=== PATIENT | female | born 1955 | race Caucasian/White ===

== ENCOUNTER 2020-10-09 15:40 | Observation (INO) | payer MEDICARE ==
[2020-10-09] MEDS ORDERED: SODIUM CHLORIDE 0.9% 500 ML 500 ML IV STA (15:56)
[2020-10-09 16:27] LABS: Basophils # (A) 0.1 k/uL (0-0.2); Basophils % (A) 1 %; Eosinophils # (A) 0.3 k/uL (0-0.7); Eosinophils % (A) 4 %; HCT 36.9 % (34.0-46.0); HGB 12.3 gm/dL (11.4-16.0); Lymphocytes % (A) 21 %; MCHC 33.3 g/dL (31.0-37.0); MCV 93.2 fL (80.0-100.0); Mean Platelet Volume 7.7; Monocytes # (A) 0.4 k/uL (0-1.0); Monocytes % (A) 4 %; Neutrophils # (A) 6.7 k/uL (1.3-7.7); Neutrophils % (A) 70 %; Platelet Count 189 k/uL (150-450); RBC 3.96 m/uL (3.80-5.40); RDW 13.7 % (11.5-15.5); WBC 9.5 k/uL (3.8-10.6)
--- NOTE | 2020-10-09 16:31 | ED ---
General Adult HPI - General Chief complaint: Weakness Stated complaint: weakness, confusion Time Seen by Provider: 10/09/20 15:44 Source: patient, RN notes reviewed, old records reviewed Mode of arrival: ambulatory Limitations: no limitations - History of Present Illness Initial comments: 65-year-old female history of Parkinson's disease presenting for evaluation of increased fatigue and weakness. She states that it is taking more time to get up and about the usual. She states she's sleeping until lunchtime daily. She was started on Zoloft 1 week ago and believes this may be contributing to her symptoms. She denies fever. She denies chest pain or abdominal pain. She denies headache. She denies focal numbness or weakness. - Related Data Home Medications Medication Instructions Recorded Confirmed Aspirin EC [Ecotrin Low Dose] 81 mg PO DAILY 10/09/20 10/09/20 Calcium Carbonate [Calcium] 600 mg PO DAILY 10/09/20 10/09/20 Carbidopa-Levodopa 25-100 mg 1 tab PO TID 10/09/20 10/09/20 [Sinemet 25-100] Cholecalciferol [Vitamin D3 (25 25 mcg PO DAILY 10/09/20 10/09/20 Mcg = 1000 Iu)] Gabapentin 600 mg PO Q8H 10/09/20 10/09/20 Lisinopril-Hctz 10-12.5 mg 1 tab PO DAILY 10/09/20 10/09/20 [Zestoretic 10-12.5] Magnesium 200 mg PO DAILY 10/09/20 10/09/20 [place]-3 Fatty Acids/Fish Oil [Fish 1 cap PO DAILY 10/09/20 10/09/20 Oil 1,000 mg Softgel] Propranolol HCl [Propranolol HCl 120 mg PO DAILY 10/09/20 10/09/20 ER] Rasagiline Mesylate 1 mg PO BID 10/09/20 10/09/20 Sertraline [Zoloft] 50 mg PO DAILY 10/09/20 10/09/20 Trihexyphenidyl [Artane] 2 mg PO BID 10/09/20 10/09/20 amantadine HCL [Amantadine] 100 mg PO BID 10/09/20 10/09/20 l-Mefol/A-Cyst/Meb12/Algal Oil 1 tab PO DAILY 10/09/20 10/09/20 [Cerefolin Nac Caplet] Allergies Allergy/AdvReac Type Severity Reaction Status Date / Time No Known Allergies Allergy Verified 10/09/20 17:07 Review of Systems ROS Statement: Those systems with pertinent positive or pertinent negative responses have been documented in the HPI. ROS Other: All systems not noted in ROS Statement are negative. Past Medical History Additional Past Medical History / Comment(s): Parkinson History of Any Multi-Drug Resistant Organisms: None Reported Past Surgical History: Cholecystectomy, Hysterectomy Past Psychological History: Depression Smoking Status: Never smoker Past Alcohol Use History: None Reported Past Drug Use History: None Reported General Exam Limitations: no limitations General appearance: alert, in no apparent distress Head exam: Present: atraumatic, normocephalic Eye exam: Present: normal appearance, PERRL ENT exam: Present: mucous membranes dry Neck exam: Present: normal inspection. Absent: tenderness, meningismus Respiratory exam: Present: normal lung sounds bilaterally. Absent: respiratory distress, wheezes, rales Cardiovascular Exam: Present: regular rate, normal rhythm GI/Abdominal exam: Present: soft. Absent: distended, tenderness, guarding, rebound Extremities exam: Present: normal inspection, normal capillary refill. Absent: pedal edema Neurological exam: Present: alert, oriented X3, CN II-XII intact. Absent: motor sensory deficit Psychiatric exam: Present: normal affect, normal mood Skin exam: Present: warm, dry, intact. Absent: cyanosis, diaphoretic Course Vital Signs 10/09/20 15:46 Temperature 98.1 F Pulse Rate 62 Respiratory 18 Rate Blood Pressure 93/49 O2 Sat by Pulse 98 Oximetry EKG Findings - EKG Comments: EKG Findings:: EKG: Normal sinus rhythm, no ST segment elevation, T-wave inversion in V2 and V3 and T-wave flattening through the lateral precordial leads. Rate of 60, NE interval 174, QRS duration 96, QTC 424 Medical Decision Making - Medical Decision Making 65-year-old female history of Parkinson's presents with increased rales weakness and fatigue. She has a nonfocal neurologic exam. She does appear dehydrated. Patient has a CBC which is within normal limits, she has a CMP showing acute kidney injury with a creatinine of 2.5, Baseline is normal. She has a mild lactic acidosis of 2.4. She has a troponin elevation 0.038 with no active chest pain, EKG does show some T-wave inversion however there is no old for comparison. She will be admitted for IV hydration, serial cardiac enzymes. Case discussed with Dr. Chow who will admit. Urinalysis pending - Lab Data Result diagrams: 10/09/20 16:17 10/09/20 16:17 Lab Results 10/09/20 10/09/20 10/09/20 Range/Units 16:17 16:17 16:17 WBC 9.5 (3.8-10.6) k/uL RBC 3.96 (3.80-5.40) m/uL Hgb 12.3 (11.4-16.0) gm/dL Hct 36.9 (34.0-46.0) % MCV 93.2 (80.0-100.0) fL MCH 31.0 (25.0-35.0) pg MCHC 33.3 (31.0-37.0) g/dL RDW 13.7 (11.5-15.5) % Plt Count 189 (150-450) k/uL MPV 7.7 Neutrophils % 70 % Lymphocytes % 21 % Monocytes % 4 % Eosinophils % 4 % Basophils % 1 % Neutrophils # 6.7 (1.3-7.7) k/uL Lymphocytes # 2.0 (1.0-4.8) k/uL Monocytes # 0.4 (0-1.0) k/uL Eosinophils # 0.3 (0-0.7) k/uL Basophils # 0.1 (0-0.2) k/uL PT 10.1 (9.0-12.0) sec INR 0.9 (<1.2) APTT 21.1 L (22.0-30.0) sec Sodium 137 (137-145) mmol/L Potassium 4.5 (3.5-5.1) mmol/L Chloride 101 (98-107) mmol/L Carbon Dioxide 25 (22-30) mmol/L Anion Gap 11 mmol/L BUN 44 H (7-17) mg/dL Creatinine 2.52 H (0.52-1.04) mg/dL Est GFR (CKD-EPI)AfAm 22 (>60 ml/min/1.73 sqM) Est GFR (CKD-EPI)NonAf 19 (>60 ml/min/1.73 sqM) Glucose 113 H (74-99) mg/dL Plasma Lactic Acid Osmin (0.7-2.0) mmol/L Calcium 9.7 (8.4-10.2) mg/dL Magnesium 2.2 (1.6-2.3) mg/dL Total Bilirubin 0.6 (0.2-1.3) mg/dL AST 43 H (14-36) U/L ALT 10 (4-34) U/L Alkaline Phosphatase 84 (38-126) U/L Troponin I (0.000-0.034) ng/mL Total Protein 7.3 (6.3-8.2) g/dL Albumin 4.0 (3.5-5.0) g/dL 10/09/20 10/09/20 Range/Units 16:17 16:17 WBC (3.8-10.6) k/uL RBC (3.80-5.40) m/uL Hgb (11.4-16.0) gm/dL Hct (34.0-46.0) % MCV (80.0-100.0) fL MCH (25.0-35.0) pg MCHC (31.0-37.0) g/dL RDW (11.5-15.5) % Plt Count (150-450) k/uL MPV Neutrophils % % Lymphocytes % % Monocytes % % Eosinophils % % Basophils % % Neutrophils # (1.3-7.7) k/uL Lymphocytes # (1.0-4.8) k/uL Monocytes # (0-1.0) k/uL Eosinophils # (0-0.7) k/uL Basophils # (0-0.2) k/uL PT (9.0-12.0) sec INR (<1.2) APTT (22.0-30.0) sec Sodium (137-145) mmol/L Potassium (3.5-5.1) mmol/L Chloride (98-107) mmol/L Carbon Dioxide (22-30) mmol/L Anion Gap mmol/L BUN (7-17) mg/dL Creatinine (0.52-1.04) mg/dL Est GFR (CKD-EPI)AfAm (>60 ml/min/1.73 sqM) Est GFR (CKD-EPI)NonAf (>60 ml/min/1.73 sqM) Glucose (74-99) mg/dL Plasma Lactic Acid Osmin 2.4 H* (0.7-2.0) mmol/L Calcium (8.4-10.2) mg/dL Magnesium (1.6-2.3) mg/dL Total Bilirubin (0.2-1.3) mg/dL AST (14-36) U/L ALT (4-34) U/L Alkaline Phosphatase (38-126) U/L Troponin I 0.038 H* (0.000-0.034) ng/mL Total Protein (6.3-8.2) g/dL Albumin (3.5-5.0) g/dL Disposition Clinical Impression: Dehydration, Acute renal failure, Elevated troponin Disposition: ADMITTED IP TO THIS [facility] Condition: Stable Is patient prescribed a controlled substance at d/c from ED?: No Referrals: Pau Hanson MD [Primary Care Provider] - 1-2 days Decision to Admit Reason: Admit from EC Decision Date: 10/09/20 Decision Time: 17:35
[2020-10-09 16:37] LABS: INR 0.9 (<1.2); Prothrombin Time 10.1 sec (9.0-12.0)
[2020-10-09 16:41] LABS: Calcium 9.7 mg/dL (8.4-10.2); Magnesium 2.2 mg/dL (1.6-2.3); Potassium 4.5 mmol/L (3.5-5.1); Total Bilirubin 0.6 mg/dL (0.2-1.3); Total Protein 7.3 g/dL (6.3-8.2)
[2020-10-09 16:44] LABS: Partial Thromboplastin Time 21.1 sec (22.0-30.0)
[2020-10-09] MEDS ORDERED: SODIUM CHLORIDE 0.9% 500 ML 500 ML IV ONE (17:03)
[2020-10-09] MEDS ORDERED: ASPIRIN 325 MG TAB PO STA (17:03)
--- NOTE | 2020-10-09 17:13 | XR ---
EXAMINATION TYPE: XR chest 2V DATE OF EXAM: 10/09/2020 COMPARISON: NONE HISTORY: Weakness TECHNIQUE: 2 views FINDINGS: Heart and mediastinum are within normal limits. Lungs are clear of infiltrate. There is no pleural effusion. Bony thorax is intact. IMPRESSION: No active cardiopulmonary disease.
[2020-10-09] MEDS ORDERED: NON FORMULARY DRUG (Gabapentin [Gabapentin] 600 MG Tablet) PO SCH (17:15)
[2020-10-09] MEDS ORDERED: ACETAMINOPHEN TAB 325 MG TAB PO PRN (17:33)
[2020-10-09] MEDS ORDERED: NALOXONE 0.4 MG/ML 1 ML VIAL IV PRN (17:33)
[2020-10-09] MEDS: SODIUM CHLORIDE 0.9% 1,000 ML IV SCH (17:48)
[2020-10-09] MEDS: CARBIDOPA-LEVODOPA 25-100 MG 1 EACH TAB PO SCH (21:46)
[2020-10-09] MEDS: RASAGILINE MESYLATE PO SCH (23:01)
[2020-10-09] MEDS: GABAPENTIN 300 MG CAP PO SCH (23:47)
[2020-10-10] MEDS ORDERED: PROPRANOLOL LA 60 MG CAP.SA.24H PO SCH (09:00)
[2020-10-10] MEDS: SODIUM CHLORIDE 0.9% 1,000 ML IV SCH ×2 (09:42→17:58)
[2020-10-10] MEDS: RASAGILINE MESYLATE PO SCH ×2 (09:52→21:38)
[2020-10-10] MEDS: [UNRECOGNIZED DRUG - OTHER] PO SCH (09:52)
[2020-10-10] MEDS: TRIHEXYPHENIDYL 2 MG TAB PO SCH ×2 (10:00→18:18)
[2020-10-10] MEDS: ASPIRIN 81 MG PO SCH (10:00)
[2020-10-10] MEDS: CARBIDOPA-LEVODOPA 25-100 MG 1 EACH TAB PO SCH ×3 (10:01→21:38)
[2020-10-10] MEDS: CHOLECALCIFEROL 25 MCG (1000 IU) TABLET PO SCH (10:01)
[2020-10-10] MEDS: MAGNESIUM OXIDE 400 MG TAB PO SCH (10:01)
[2020-10-10] MEDS: GABAPENTIN 300 MG CAP PO SCH (10:01)
[2020-10-10 11:37] LABS: Appearance,Urine Cloudy (Clear); Bilirubin,Urine Negative (Negative); Blood,Urine Negative (Negative); Color,Urine Yellow; Glucose,Urine (UA) Negative (Negative); Ketones,Urine Negative (Negative); Leukocyte Esterase,Urine Moderate (Negative); Nitrite,Urine Negative (Negative); PH, Urine 5.5 (5.0-8.0); Protein,Urine Trace (Negative); RBC,Urine 2 /hpf (0-5); Specific Gravity,Urine 1.017 (1.001-1.035); Squamous Epithelial Cell,Urine 2 /hpf (0-4); Urobilinogen,Urine <2.0 mg/dL (<2.0); WBC,Urine 9 /hpf (0-5)
--- NOTE | 2020-10-10 11:39 | P.HPIM ---
History of Present Illness 65-year-old the jules avila female came in with compensative dizziness fatigue and weakness has been going on for about 34 days progressive getting worse. Patient is found to be in renal failure patient denied any poor by mouth intake denied any diarrhea. Patient denied nausea vomiting patient is also found to be hypotensive . Patient baseline creatinine was around 1.2 and went up to around 1-2.5. Patient was given a bolus of fluid subsequently admitted at 75 mL of normal saline. IV fluids will be increased 1 25 mL nephrology was consulted will obtain bladder scan, ultrasound of the kidney urinary bladder, urine random sodium urine random creatinine and urine he snuffles nephrology will be consulted. Patient doesn't have any chest pain EKG did not show any significant abnormality patient has a positive troponin which was moderately elevated secondary to renal failure. Patient was on lisinopril hydrochlorothiazide which is being held. Review of Systems REVIEW OF SYSTEMS: CONSTITUTIONAL: As mentioned in HPI HEENT: No recent visual problems or hearing problems. Denied any sore throat. CARDIOVASCULAR: No chest pain, orthopnea, PND, no palpitations, no syncope. PULMONARY: No shortness of breath, no cough, no hemoptysis. GASTROINTESTINAL: No diarrhea, no nausea, no vomiting, no abdominal pain. NEUROLOGICAL: No headaches, no weakness, no numbness. HEMATOLOGICAL: Denies any bleeding or petechiae. GENITOURINARY: Denies any burning micturition, frequency, or urgency. MUSCULOSKELETAL/RHEUMATOLOGICAL: Denies any joint pain, swelling, or any muscle pain. ENDOCRINE: Denies any polyuria or polydipsia. The rest of the 14-point review of systems is negative. Past Medical History Past Medical History: Hypertension Additional Past Medical History / Comment(s): Parkinson History of Any Multi-Drug Resistant Organisms: None Reported Past Surgical History: Cholecystectomy, Hysterectomy Past Anesthesia/Blood Transfusion Reactions: No Reported Reaction Past Psychological History: Depression Smoking Status: Never smoker Past Alcohol Use History: None Reported Past Drug Use History: None Reported Medications and Allergies Home Medications Medication Instructions Recorded Confirmed Type Aspirin EC [Ecotrin Low Dose] 81 mg PO DAILY 10/09/20 10/09/20 History Calcium Carbonate [Calcium] 600 mg PO DAILY 10/09/20 10/09/20 History Carbidopa-Levodopa 25-100 mg 1 tab PO TID 10/09/20 10/09/20 History [Sinemet 25-100] Cholecalciferol [Vitamin D3 (25 25 mcg PO DAILY 10/09/20 10/09/20 History Mcg = 1000 Iu)] Gabapentin 600 mg PO Q8H 10/09/20 10/09/20 History Lisinopril-Hctz 10-12.5 mg 1 tab PO DAILY 10/09/20 10/09/20 History [Zestoretic 10-12.5] Magnesium 200 mg PO DAILY 10/09/20 10/09/20 History [place]-3 Fatty Acids/Fish Oil [Fish 1 cap PO DAILY 10/09/20 10/09/20 History Oil 1,000 mg Softgel] Propranolol HCl [Propranolol HCl 120 mg PO DAILY 10/09/20 10/09/20 History ER] Rasagiline Mesylate 1 mg PO BID 10/09/20 10/09/20 History Sertraline [Zoloft] 50 mg PO DAILY 10/09/20 10/09/20 History Trihexyphenidyl [Artane] 2 mg PO BID 10/09/20 10/09/20 History amantadine HCL [Amantadine] 100 mg PO BID 10/09/20 10/09/20 History l-Mefol/A-Cyst/Meb12/Algal Oil 1 tab PO DAILY 10/09/20 10/09/20 History [Cerefolin Nac Caplet] Allergies Allergy/AdvReac Type Severity Reaction Status Date / Time No Known Allergies Allergy Verified 10/09/20 17:07 Physical Exam Vitals: Vital Signs Temp Pulse Pulse Resp BP BP Pulse Ox 10/10/20 03:50 97.8 F 60 19 118/58 98 10/10/20 01:26 68 17 10/09/20 23:24 97.8 F 68 17 130/72 97 10/09/20 20:36 88 18 120/73 98 10/09/20 20:00 97.8 F 62 20 111/69 97 10/09/20 17:30 62 16 106/61 98 10/09/20 17:00 58 L 16 107/71 98 10/09/20 16:30 59 L 18 99/50 98 10/09/20 15:46 98.1 F 62 18 93/49 98 Intake and Output 10/09/20 10/10/20 10/10/20 22:59 06:59 14:59 Intake Total 180 Balance 180 Intake: Oral 180 Other: Voiding Method Bedside Commode Bedside Commode Weight 119.295 kg 121.5 kg PHYSICAL EXAMINATION: GENERAL: The patient is alert and oriented x3, not in any acute distress. Obese HEENT: Pupils are round and equally reacting to light. EOMI. No scleral icterus. No conjunctival pallor. Normocephalic, atraumatic. No pharyngeal erythema. No thyromegaly. CARDIOVASCULAR: S1 and S2 present. No murmurs, rubs, or gallops. PULMONARY: Chest is clear to auscultation, no wheezing or crackles. ABDOMEN: Soft, nontender, nondistended, normoactive bowel sounds. No palpable organomegaly. MUSCULOSKELETAL: No joint swelling or deformity. EXTREMITIES: No cyanosis, clubbing, or pedal edema. NEUROLOGICAL: Gross neurological examination did not reveal any focal deficits. SKIN: No rashes. Results CBC & Chem 7: 10/09/20 16:17 10/09/20 16:17 Labs: Abnormal Lab Results - Last 24 Hours (Table) 10/09/20 10/09/20 10/09/20 Range/Units 16:17 16:17 16:17 APTT 21.1 L (22.0-30.0) sec BUN 44 H (7-17) mg/dL Creatinine 2.52 H (0.52-1.04) mg/dL Glucose 113 H (74-99) mg/dL Plasma Lactic Acid Osmin 2.4 H* (0.7-2.0) mmol/L AST 43 H (14-36) U/L Troponin I (0.000-0.034) ng/mL 10/09/20 Range/Units 16:17 APTT (22.0-30.0) sec BUN (7-17) mg/dL Creatinine (0.52-1.04) mg/dL Glucose (74-99) mg/dL Plasma Lactic Acid [place]min (0.7-2.0) mmol/L AST (14-36) U/L Troponin I 0.038 H* (0.000-0.034) ng/mL Thrombosis Risk Factor Assmnt - Choose All That Apply Each Risk Factor Represents 2 Points: Age 61-74 years Thrombosis Risk Factor Assessment Total Risk Factor Score: 2 Thrombosis Risk Factor Assessment Level: Low Risk Assessment and Plan Plan: -Acute renal failure on chronic kidney disease stage II: Probably secondary to lisinopril and had good thiazide which is held and patient IV fluids will be increased 1 25 mL per hour and further workup for etiology of renal failure as mentioned above. -Social hypertension: Patient is presently hypotensive at this time, propranolol will be held and the lisinopril hydrochlorothiazide will be held -Elevated troponin secondary to renal dysfunction. -The depression -Chronic back pain and peripheral neuropathy patient is on gabapentin which will be continued but will cut down the dose -History of Parkinson's patient is on Sinemet, amantadine and rasagline which will be continued which will be continued -Obesity -DVT prophylaxis with the heparin
[2020-10-10 11:52] LABS: Calcium 8.9 mg/dL (8.4-10.2); Potassium 4.2 mmol/L (3.5-5.1)
--- NOTE | 2020-10-10 13:06 | P.NPCON ---
History of Present Illness - Reason for Consult acute renal failure - History of Present Illness Reason for consult admission: Acute kidney injury History of present illness: Patient is a 65-year-old female seen in consultation for acute kidney injury. Patient's creatinine as of January 2019 was 1.3. On admission it was elevated at 2.5 to and is 2.08 today. Patient presented to the hospital with generalized weakness and dizziness. She denies any syncopal episodes. Her blood pressure was in the systolic 90s initially but is now better. Most recent reading was 118/58. She was on lisinopril and hydrochlorothiazide which are currently held. Oral intake is fair. No vomiting or diarrhea. She is currently receiving IV fluids with normal saline running at 1 25 mL an hour. Has been voiding. No h ematuria or dysuria. No abdominal pain. Lactic acid was high at 2.4 and improved to 1.9 but repeated a few hours after. Denies regular use of nonsteroidals. UA is quite benign. Chest x-ray negative for any acute process. Renal ultrasound is pending. Denies family history of renal disease. is present at bedside. Vital signs are stable. General: The patient appeared well nourished and normally developed. HEENT: Head exam is unremarkable. Neck is without jugular venous distension. LUNGS: Breath sounds decreased. HEART: Rate and Rhythm are regular. ABDOMEN: Soft, nontender. Obese. EXTREMITITES: No edema. Past Medical History Past Medical History: Hypertension Additional Past Medical History / Comment(s): Parkinson History of Any Multi-Drug Resistant Organisms: None Reported Past Surgical History: Cholecystectomy, Hysterectomy Past Anesthesia/Blood Transfusion Reactions: No Reported Reaction Past Psychological History: Depression Smoking Status: Never smoker Past Alcohol Use History: None Reported Past Drug Use History: None Reported Medications and Allergies Home Medications Medication Instructions Recorded Confirmed Type Aspirin EC [Ecotrin Low Dose] 81 mg PO DAILY 10/09/20 10/09/20 History Calcium Carbonate [Calcium] 600 mg PO DAILY 10/09/20 10/09/20 History Carbidopa-Levodopa 25-100 mg 1 tab PO TID 10/09/20 10/09/20 History [Sinemet 25-100] Cholecalciferol [Vitamin D3 (25 25 mcg PO DAILY 10/09/20 10/09/20 History Mcg = 1000 Iu)] Gabapentin 600 mg PO Q8H 10/09/20 10/09/20 History Lisinopril-Hctz 10-12.5 mg 1 tab PO DAILY 10/09/20 10/09/20 History [Zestoretic 10-12.5] Magnesium 200 mg PO DAILY 10/09/20 10/09/20 History [place]-3 Fatty Acids/Fish Oil [Fish 1 cap PO DAILY 10/09/20 10/09/20 History Oil 1,000 mg Softgel] Propranolol HCl [Propranolol HCl 120 mg PO DAILY 10/09/20 10/09/20 History ER] Rasagiline Mesylate 1 mg PO BID 10/09/20 10/09/20 History Sertraline [Zoloft] 50 mg PO DAILY 10/09/20 10/09/20 History Trihexyphenidyl [Artane] 2 mg PO BID 10/09/20 10/09/20 History amantadine HCL [Amantadine] 100 mg PO BID 10/09/20 10/09/20 History l-Mefol/A-Cyst/Meb12/Algal Oil 1 tab PO DAILY 10/09/20 10/09/20 History [Cerefolin Nac Caplet] Allergies Allergy/AdvReac Type Severity Reaction Status Date / Time No Known Allergies Allergy Verified 10/09/20 17:07 Physical Exam Vitals: Vital Signs Temp Pulse Pulse Resp BP BP Pulse Ox 10/10/20 03:50 97.8 F 60 19 118/58 98 10/10/20 01:26 68 17 10/09/20 23:24 97.8 F 68 17 130/72 97 10/09/20 20:36 88 18 120/73 98 10/09/20 20:00 97.8 F 62 20 111/69 97 10/09/20 17:30 62 16 106/61 98 10/09/20 17:00 58 L 16 107/71 98 10/09/20 16:30 59 L 18 99/50 98 10/09/20 15:46 98.1 F 62 18 93/49 98 Intake and Output 10/09/20 10/10/20 10/10/20 22:59 06:59 14:59 Intake Total 780 Output Total 600 Balance 180 Intake: Intake, IV Titration 600 Amount Sodium Chloride 0.9% 1, 600 000 ml @ 125 mls/hr IV . Q8H [facility] Rx#:[id number] Oral 180 Output: Urine 600 Other: Voiding Method Bedside Commode Bedside Commode Weight 119.295 kg 121.5 kg Results - Lab Results Most recent lab results Calcium 8.9 mg/dL (8.4-10.2) 10/10/20 11:26 Magnesium 2.2 mg/dL (1.6-2.3) 10/09/20 16:17 10/09/20 16:17 10/10/20 11:26 Assessment and Plan Plan: Assessment: 1. Acute kidney injury mostly prerenal secondary to hypovolemia and hypotension. Creatinine was 2.52 on admission was 2.0 today. UA is fairly benign. 2. Hypovolemia secondary to diuretics. 3. Benign hypertension. Blood pressure was in the systolic 90s on admission but is better now. 4. Pyuria. Plan: Maintain IV fluids. Continue to hold antihypertensives. Check urine culture. Follow-up renal ultrasound. Check SPEP and immunofixation. Continue to monitor renal function and urine output. Thank you for the consultation. I will continue to follow the patient with you during her hospital stay.
--- NOTE | 2020-10-10 14:00 | US ---
EXAMINATION TYPE: US kidneys/renal and bladder DATE OF EXAM: 10/10/2020 COMPARISON: NONE CLINICAL HISTORY: ARSENIO. dehydrated, morbidly obese EXAM MEASUREMENTS: Right Kidney: 10.2 x 4.0 x 4.6 cm Left Kidney: 9.8 x 3.4 x 4.9 cm Right Kidney: No hydronephrosis or masses seen Left Kidney: Limited imaging due to bowel gas and patient inability to roll more on their right side, no hydronephrosis or masses seen Bladder: wnl Bilateral Jets seen: yes IMPRESSION: 1. Normal renal ultrasound
[2020-10-10] MEDS: HEPARIN SODIUM,PORCINE 5,000 UNIT/ML 1 ML VIAL SQ SCH ×2 (16:16→23:20)
[2020-10-10] MEDS: GABAPENTIN 100 MG CAP PO SCH ×2 (16:16→23:20)
[2020-10-10 19:12] LABS: Protein, Total 6.2 g/dL (6.2-8.2)
[2020-10-10 20:40] LABS: Glucose,Whole Blood 101 mg/dL (75-99)
[2020-10-11] MEDS: SODIUM CHLORIDE 0.9% 1,000 ML IV SCH (04:10)
[2020-10-11 07:33] LABS: Calcium 8.6 mg/dL (8.4-10.2); Magnesium 1.8 mg/dL (1.6-2.3); Potassium 4.4 mmol/L (3.5-5.1)
[2020-10-11 07:59] VITALS: BP 145/82; PULSE 66; RESP 18; TEMP 97.5
[2020-10-11] MEDS: MAGNESIUM OXIDE 400 MG TAB PO SCH (08:03)
[2020-10-11] MEDS: CARBIDOPA-LEVODOPA 25-100 MG 1 EACH TAB PO SCH (08:03)
[2020-10-11] MEDS: CHOLECALCIFEROL 25 MCG (1000 IU) TABLET PO SCH (08:03)
[2020-10-11] MEDS: GABAPENTIN 100 MG CAP PO SCH (08:03)
[2020-10-11] MEDS: ASPIRIN 81 MG PO SCH (08:03)
[2020-10-11] MEDS: HEPARIN SODIUM,PORCINE 5,000 UNIT/ML 1 ML VIAL SQ SCH (08:03)
[2020-10-11] MEDS: RASAGILINE MESYLATE PO SCH (08:04)
[2020-10-11] MEDS: [UNRECOGNIZED DRUG - OTHER] PO SCH (08:04)
[2020-10-11] MEDS ORDERED: traMADol 50 MG TAB PO PRN (08:29)
[2020-10-11] MEDS: TRIHEXYPHENIDYL 2 MG TAB PO SCH (08:52)
--- NOTE | 2020-10-11 09:50 | XR ---
EXAMINATION TYPE: XR knee complete LT DATE OF EXAM: 10/11/2020 CLINICAL HISTORY: pain TECHNIQUE: Three views of the left knee are obtained. COMPARISON: None. FINDINGS: There is no acute fracture/dislocation. Total knee arthroplasty is noted to be in place. T he overlying soft tissue appears unremarkable. IMPRESSION: There is no acute fracture or dislocation ICD 10 NO FRACTURE, INITIAL EVALUATION
--- NOTE | 2020-10-11 09:51 | XR ---
EXAMINATION TYPE: XR Hip Complete LT DATE OF EXAM: 10/11/2020 CLINICAL HISTORY: pain TECHNIQUE: AP and frogleg views of the left hip are obtained. COMPARISON: None. FINDINGS: There is no acute fracture/dislocation evident. The joint space appears mildly narrowed. The overlying soft tissue appears unremarkable. IMPRESSION: 1. There is no acute fracture or dislocation.ICD 10 NO FRACTURE, INITIAL EVALUATION
--- NOTE | 2020-10-11 10:06 | P.PN ---
Subjective Patient is seen in follow for acute kidney injury. Renal function improving. Blood pressure stable. No dizziness. Oral intake is good. Vital signs are stable. General: The patient appeared well nourished and normally developed. HEENT: Head exam is unremarkable. Neck is without jugular venous distension. LUNGS: Breath sounds decreased. HEART: Rate and Rhythm are regular. ABDOMEN: Soft, nontender. Obese. EXTREMITITES: No edema. Objective - Vital Signs Vital signs: Vital Signs Temp 97.5 F L 10/11/20 07:58 Pulse 66 10/11/20 08:07 Resp 18 10/11/20 08:07 BP 145/82 10/11/20 07:58 Pulse Ox 96 10/11/20 07:58 Intake & Output 10/10/20 10/11/20 10/11/20 18:59 06:59 18:59 Intake Total 1800 240 Output Total 1400 500 Balance 400 -260 Intake: Intake, IV Titration 600 Amount Sodium Chloride 0.9% 1, 600 000 ml @ 125 mls/hr IV . Q8H [facility] Rx#:[id number] Oral 1200 240 Output: Urine 1400 500 Other: Voiding Method Bedside Commode Bedside Commode # Voids 1 - Labs CBC & Chem 7: 10/09/20 16:17 10/11/20 06:35 Labs: Abnormal Lab Results - Last 24 Hours (Table) 10/10/20 10/10/20 10/10/20 Range/Units 11:20 11:26 20:38 BUN 44 H (7-17) mg/dL Creatinine 2.08 H (0.52-1.04) mg/dL Glucose 106 H (74-99) mg/dL POC Glucose (mg/dL) 101 H (75-99) mg/dL Urine Appearance Cloudy H (Clear) Urine Protein Trace H (Negative) Ur Leukocyte Esterase Moderate H (Negative) Urine WBC 9 H (0-5) /hpf 10/11/20 Range/Units 06:35 BUN 42 H (7-17) mg/dL Creatinine 1.66 H (0.52-1.04) mg/dL Glucose (74-99) mg/dL POC Glucose (mg/dL) (75-99) mg/dL Urine Appearance (Clear) Urine Protein (Negative) Ur Leukocyte Esterase (Negative) Urine WBC (0-5) /hpf Microbiology - Last 24 Hours (Table) 10/10/20 16:39 Urine Culture - Preliminary Urine,Clean Catch Assessment and Plan Plan: Assessment: 1. Acute kidney injury mostly prerenal secondary to hypovolemia and hypotension. Creatinine was 2.52 on admission and is down to 1.66 today. UA is fairly benign. No hydronephrosis noted on kidney ultrasound. 2. Hypovolemia secondary to diuretics. 3. Benign hypertension. Controlled. 4. Pyuria. Urine culture pending. Plan: Decreased normal saline to 50 mL an hour. Follow-up SPEP and immunofixation. Continue to monitor renal function and urine output. Continue to hold antihypertensives. Follow-up outpatient in 1-2 weeks
--- NOTE | 2020-10-11 13:43 | P.DS ---
Providers Date of admission: 10/10/20 17:26 Attending physician: Anna Chow Consults: 10/10/20 10:51 Consult Physician Routine Consulting Provider: Dom Anne Consult Reason/Comments: ARSENIO Do you want consulting provider notified?: Yes Primary care physician: Pau Hanson [facility] Course: 65-year-old the jules pleasant female came in with compensative dizziness fatigue and weakness has been going on for about 34 days progressive getting worse. Patient is found to be in renal failure patient denied any poor by mouth intake denied any diarrhea. Patient denied nausea vomiting patient is also found to be hypotensive . Patient baseline creatinine was around 1.2 and went up to around 1-2.5. Patient was given a bolus of fluid subsequently admitted at 75 mL of normal saline. IV fluids will be increased 1 25 mL nephrology was consulted will obtain bladder scan, ultrasound of the kidney urinary bladder, urine random sodium urine random creatinine and urine he snuffles nephrology will be consulted. Patient doesn't have any chest pain EKG did not show any significant abnormality patient has a positive troponin which was moderately elevated secondary to renal failure. Patient was on lisinopril hydrochlorothiazide which is being held. 10/11/2020 patient's creatinine improved and presently at her baseline. Patient blood pressure started going up patient was started on amlodipine patient renal failure is secondary to lisinopril and hydrochlorothiazide. Patient the will be discharged today with follow-up with nephrology and PCP as an outpatient. Patient was complaining of for left hip and knee pain imaging of these joints did not show any fracture patient pain is mild to moderate. Do not believe patient had DVT because of the location of the pain PHYSICAL EXAMINATION: GENERAL: The patient is alert and oriented x3, not in any acute distress. Well developed, well nourished. HEENT: Pupils are round and equally reacting to light. EOMI. No scleral icterus. No conjunctival pallor. Normocephalic, atraumatic. No pharyngeal erythema. No thyromegaly. CARDIOVASCULAR: S1 and S2 present. No murmurs, rubs, or gallops. PULMONARY: Chest is clear to auscultation, no wheezing or crackles. ABDOMEN: Soft, nontender, nondistended, normoactive bowel sounds. No palpable organomegaly. MUSCULOSKELETAL: No joint swelling or deformity. EXTREMITIES: No cyanosis, clubbing, or pedal edema. NEUROLOGICAL: Gross neurological examination did not reveal any focal deficits. SKIN: No rashes. Assessment and Plan Plan: -Acute renal failure on chronic kidney disease stage II: Probably secondary to lisinopril and hydrochlorothiazide -Essential hypertension: -Elevated troponin secondary to renal dysfunction. -depression -Chronic back pain and peripheral neuropathy patient is on gabapentin which will be continued but will cut down the dose -History of Parkinson's patient is on Sinemet, amantadine and rasagline which will be continued which will be continued -Obesity Patient Condition at Discharge: Stable Plan - Discharge Summary New Discharge Prescriptions: New amLODIPine [Norvasc] 2.5 mg PO DAILY #30 tablet Continue Bristol-3 Fatty Acids/Fish Oil [Fish Oil 1,000 mg Softgel] 1 cap PO DAILY Magnesium 200 mg PO DAILY Cholecalciferol [Vitamin D3 (25 Mcg = 1000 Iu)] 25 mcg PO DAILY Calcium Carbonate [Calcium] 600 mg PO DAILY Aspirin EC [Ecotrin Low Dose] 81 mg PO DAILY amantadine HCL [Amantadine] 100 mg PO BID Trihexyphenidyl [Artane] 2 mg PO BID Sertraline [Zoloft] 50 mg PO DAILY Rasagiline Mesylate 1 mg PO BID Carbidopa-Levodopa 25-100 mg [Sinemet 25-100 mg] 1 tab PO TID l-Mefol/A-Cyst/Meb12/Algal Oil [Cerefolin Nac Caplet] 1 tab PO DAILY Changed Gabapentin 300 mg PO BID #0 Discontinued Propranolol HCl [Propranolol HCl ER] 120 mg PO DAILY Lisinopril-Hctz 10-12.5 mg [Zestoretic 10-12.5] 1 tab PO DAILY Discharge Medication List Aspirin EC [Ecotrin Low Dose] 81 mg PO DAILY 10/09/20 [History] Calcium Carbonate [Calcium] 600 mg PO DAILY 10/09/20 [History] Carbidopa-Levodopa 25-100 mg [Sinemet 25-100 mg] 1 tab PO TID 10/09/20 [History] Cholecalciferol [Vitamin D3 (25 Mcg = 1000 Iu)] 25 mcg PO DAILY 10/09/20 [History] Magnesium 200 mg PO DAILY 10/09/20 [History] Bristol-3 Fatty Acids/Fish Oil [Fish Oil 1,000 mg Softgel] 1 cap PO DAILY 10/09/20 [History] Rasagiline Mesylate 1 mg PO BID 10/09/20 [History] Sertraline [Zoloft] 50 mg PO DAILY 10/09/20 [History] Trihexyphenidyl [Artane] 2 mg PO BID 10/09/20 [History] amantadine HCL [Amantadine] 100 mg PO BID 10/09/20 [History] l-Mefol/A-Cyst/Meb12/Algal Oil [Cerefolin Nac Caplet] 1 tab PO DAILY 10/09/20 [History] Gabapentin 300 mg PO BID #0 10/11/20 [Rx] amLODIPine [Norvasc] 2.5 mg PO DAILY #30 tablet 10/11/20 [Rx] Follow up Appointment(s)/Referral(s): [facility], [NON-STAFF] - Pau Hanson MD [Primary Care Provider] - 10/16/20 3:40 pm Dom Anne DO [STAFF PHYSICIAN] - 10/24/20 1:20 pm Patient Instructions/Handouts: Weakness (DC) Discharge Disposition: HOME SELF-CARE
[2020-10-11 13:49] LABS: Albumin 3.47 g/dL (3.80-4.90); Gamma Globulin 0.84 g/dL (0.70-1.50)
== END 2020-10-11 16:28 | disposition home health service (06) ==
LOC: EC 15:40 → 3SCARD 18:03 → OBSVTOIN 10-10 17:26 → INTOOBSV 10-10 17:26 → 4SSUR 10-10 22:34 → UNDODISIN 10-11 16:28
PROVIDERS: ADMIT Internal Medicine; ATTEND Internal Medicine
DX: N17.9 Acute kidney failure, unspecified (principal); E87.2 Acidosis; I12.9 Hypertensive chronic kidney disease with stage 1 through stage 4 chronic kidney disease, or unspecified chronic kidney disease; N18.2 Chronic kidney disease, stage 2 (mild); G20 Parkinson's disease; E86.0 Dehydration; E86.1 Hypovolemia; T50.2X5A Adverse effect of carbonic-anhydrase inhibitors, benzothiadiazides and other diuretics, initial encounter; G89.29 Other chronic pain; M54.9 Dorsalgia, unspecified; G62.9 Polyneuropathy, unspecified; F32.9 Major depressive disorder, single episode, unspecified; R79.89 Other specified abnormal findings of blood chemistry; E66.9 Obesity, unspecified; Z68.41 Body mass index [BMI] 40.0-44.9, adult; R82.81 Pyuria; I95.9 Hypotension, unspecified; M25.552 Pain in left hip; M25.551 Pain in right hip; M25.562 Pain in left knee; M25.561 Pain in right knee; Z79.82 Long term (current) use of aspirin; Z79.899 Other long term (current) drug therapy; Z90.710 Acquired absence of both cervix and uterus; Z90.49 Acquired absence of other specified parts of digestive tract
CPT/HCPCS: 96372 ×2; 96361 ×2; 96360; 99285; 36415; 94760; 93005; 97162; 97166; 84300; 82570; 80053; 80048 ×2; 83605; 83735 ×2; 84484; 85025; 85610; 85730; 81001; 87205; 84165; 87086; 86334; 86335; 73502; 73562; 71046; 76770; G0378 ×4; J1644 ×2